=== PATIENT | male | born 1985 | race Caucasian/White ===

== ENCOUNTER → 2016-06-11 | Outpatient (CLI) | payer OTHER ==
[2016-06-13 11:57] LABS: QUANTIF TB AG-NIL <0.00 IU/ML; QUANTIFERON NIL 0.06 IU/ML
== END | disposition home or self-care (01) ==
LOC: C.LABSPEC 12:32
PROVIDERS: ATTEND Family Medicine
DX: Z11.1 Encounter for screening for respiratory tuberculosis (principal)